=== PATIENT | male | born 1990 ===

== ENCOUNTER 2022-07-12 09:16 | Emergency (ER) | payer OTHER, SELFPAY ==
[2022-07-12 09:27] VITALS: BP 110/85; PULSE 75; RESP 18; TEMP 36.9; O2SAT 95; BMI 22.4
--- NOTE | 2022-07-12 09:55 | CRLHL7_ITS ---
For Patients: As a result of the Cures Act, medical imaging exams and procedure reports are released immediately into your electronic medical record. You may view this report before your referring provider. If you have questions, please contact your health care provider. Indication: Cough and fever Comparison: None available. Technique: PA and lateral views of the chest Findings: There is dense airspace opacification of the left lower lobe consistent with infiltrate. The right hemithorax is clear. The cardiomediastinal silhouette is within normal limits. The bony thorax is grossly intact. Impression: Dense airspace opacification of the left lower lobe consistent with infiltrate. Dictated by Everardo Cates MD @ 07/12/2022 10:46:16 AM (Electronically Signed)
--- NOTE | 2022-07-12 09:57 | ED.GENADULT ---
HPI - General Adult General Chief complaint: Cough Stated complaint: Cough, congestion Time Seen by Provider: 07/12/22 09:43 History of Present Illness HPI narrative: This 31-year-old male was at an urgent care clinic in [place] and was sent here because of possible pneumonia. It there was no communication from the urgent care but apparently there was concern about his oximetry at 94% and his systolic blood pressure at around 90. He arrives here with oximetry at 95% on room air and a systolic blood pressure of 110. He states that he has been having cough and upper respiratory symptoms for the past week. His has similar symptoms and was diagnosed with a pneumonia. He states that he did measure a fever a few days ago at around 101? F. Related Data Home Medications Medication Instructions Recorded Confirmed No Known Home Medications 07/12/22 07/12/22 Previous Rx's Medication Instructions Recorded amoxicillin 500 mg capsule 1,000 mg PO TID 10 days #60 caps 07/12/22 azithromycin 250 mg tablet 250 mg PO DAILY #6 tabs 07/12/22 (Zithromax Z-Art) Allergies Allergy/AdvReac Type Severity Reaction Status Date / Time No Known Drug Allergies Allergy Verified 07/12/22 09:26 Review of Systems Status of ROS: Reports: 10 or more systems reviewed and unremarkable except as noted in History and below Narrative: Constitutional: No weight gain or loss. He had a fever a few days ago. Eyes: No discharge. No vision changes. HENT: No congestion, no sore throat, no ear pain. Cardiovascular: No chest pain, no palpitations. Respiratory: He reports a cough. Gastrointestinal: No abdominal pain, no vomiting, no diarrhea. Genitourinary: No dysuria, no hematuria. Musculoskeletal: Normal range of motion. Skin: No rashes, no pruritis. Neurological: No dizziness, weakness, sensory change, speech change. Endo/Heme/Allergies: No bruising or bleeding. No polydipsia. Pysch: no suicidality, no anxiety, no insomnia. All other systems reviewed and are negative. PFSH PFSH Social History Smoking Status: Never smoker How often do you have a drink containing alcohol: monthly or less AUDIT-C Alcohol total score: 1 Non-prescribed substance use: denies use service: No Exam Narrative: Exam Narrative: Constitutional: Well-developed, well-nourished, no acute distress. HEENT: Normocephalic, atraumatic. Neck: Normal range of motion. Nontender. Supple. Heart: Regular. No murmurs. Normal rate. Intact distal pulses. Lungs: Clear to auscultation. No chest discomfort. No wheezes, rhonchi, or rales. Abdomen: Normal bowel sounds. Nontender. No rebound tenderness. Genitalia: Deferred. Back: No midline tenderness. Normal range of motion. Extremities: Normal range of motion. No injury. Skin: Intact. No rash. Warm. No erythema or pallor. Neurologic: No altered sensation. No weakness. Alert and oriented. Psychiatric: No suicidality. No anxiety or depression. No insomnia. Nursing notes and vitals signs are reviewed. Const: Vital Signs, click to edit/add: Vital Signs - 24 hr 07/12/22 09:27 Temperature 98.5 F Pulse Rate [Right Pulse Oximeter] 75 Respiratory Rate 18 Blood Pressure [Ri ght Upper Arm] 110/85 Pulse Oximetry 95 Oxygen Delivery Me thod Room Air Course Vital Signs Vital signs: Initial Vital Signs Temperature 98.5 F 07/12/22 09:27 Temperature Source Temporal Artery Scan 07/12/22 09:27 Pulse Rate 75 07/12/22 09:27 Respiratory Rate 18 07/12/22 09:27 Blood Pressure 110/85 07/12/22 09:27 Blood Pressure Mean 93 07/12/22 09:27 Blood Pressure Position Sitting 07/12/22 09:27 Pulse Oximetry 95 07/12/22 09:27 Oxygen Delivery Method Room Air 07/12/22 09:27 Vital Signs Temperature 98.5 F 07/12/22 09:27 Pulse Rate 75 07/12/22 09:27 Respiratory Rate 18 07/12/22 09:27 Blood Pressure 110/85 07/12/22 09:27 Pulse Oximetry 95 07/12/22 09:27 Oxygen Delivery Method Room Air 07/12/22 09:27 Temperature 98.5 F 07/12/22 09:27 Pulse Rate 75 07/12/22 09:27 Respiratory Rate 18 07/12/22 09:27 Blood Pressure 110/85 07/12/22 09:27 Pulse Oximetry 95 07/12/22 09:27 Oxygen Delivery Method Room Air 07/12/22 09:27 Medical Decision Making MDM Narrative Medical decision making narrative: This patient arrives with concern about possible pneumonia. He does have normal vital signs and his exam is also normal. A chest x-ray however does show sign of a infiltrate in the left lower lobe. Lab results are reassuring. The patient did receive prescription for amoxicillin and Z-Art. At the time of discharge the patient appears safe for outpatient management. The treatment plan is reviewed along with written and verbal return precautions. Reasons to return and the importance of close followup were also reviewed. Lab Data Labs: Lab Results 07/12/22 Range/Units 10:04 WBC 9.44 (4.50-11.00) K/uL RBC 4.43 (4.30-5.90) m/uL Hgb 13.0 L (13.5-17.5) gm/dL Hct 39.1 (37.0-53.0) % MCV 88 (80-100) fL MCH 29 (26-34) pg MCHC 33 (32-36) gm/dL RDW Coeff of [place] 12.1 (11.5-15.5) % Plt Count 194 (140-440) K/uL Neut % (Auto) 74.8 H (42.0-72.0) % Lymph % (Auto) 16.3 L (20-44) % [place] % (Auto) 8.4 (0.0-11.0) % Eos % (Auto) 0.2 (0.0-7.0) % Baso % (Auto) 0.2 (0.0-3.0) % Neut # (Auto) 7.10 H (1.7-7.0) K/uL Lymph # (Auto) 1.50 (0.90-2.90) K/uL Roosevelt # (Auto) 0.80 (0.00-0.90) K/UL Eos # (Auto) 0.02 (0.00-0.50) K/uL Baso # (Auto) 0.02 (0.00-0.30) K/uL Imaging Data Chest x-ray: Radiologist's impression: Dense airspace opacification of the left lower lobe consistent with infiltrate. Discharge Plan Discharge Clinical Impression: Pneumonia Patient Disposition: Home, Self-Care Condition: Unchanged Additional Instructions: Take medications as prescribed. Follow up with MD or return if worsening. Prescriptions: New amoxicillin 500 mg capsule 1,000 mg PO TID 10 Days Qty: 60 0RF azithromycin [Zithromax Z-Art] 250 mg tablet 250 mg PO DAILY Qty: 6 0RF No Action No Known Home Medications Follow Up/Referrals: Provider,Not a Local [Primary Care Provider] - Stand Alone Forms: [facility] Info Instructions
[2022-07-12 10:16] LABS: Basophils Absolute Auto 0.02 K/uL (0.00-0.30); Basophils Percent Auto 0.2 % (0.0-3.0); Eosinophils Absolute Auto 0.02 K/uL (0.00-0.50); Eosinophils Percent Auto 0.2 % (0.0-7.0); Hematocrit 39.1 % (37.0-53.0); Immature Granulocytes Abs Auto 0.01 K/uL (0.00-0.30); Immature Granulocytes Pct Auto 0.1 %; Lymphocytes Percent Auto 16.3 % (20-44); Mean Corpuscular HGB Conc 33 gm/dL (32-36); Mean Corpuscular Hemoglobin 29 pg (26-34); Mean Corpuscular Volume 88 fL (80-100); Monocytes Percent Auto 8.4 % (0.0-11.0); Neutrophils Percent Auto 74.8 % (42.0-72.0); Platelet Count* 194 K/uL (140-440); RDW Coefficient of Variation % 12.1 % (11.5-15.5); Red Blood Count 4.43 m/uL (4.30-5.90); White Blood Count* 9.44 K/uL (4.50-11.00)
[2022-07-12 10:25] LABS: Slide Review Reflex No
== END 2022-07-12 11:04 | disposition home or self-care (01) ==
PROVIDERS: Emergency Provider Emergency Medicine Emergency Medical Services
DX: J18.9 Pneumonia, unspecified organism (principal)
CPT/HCPCS: 36415; 71046; 85025; 99283; 99284